=== PATIENT | female | born 1955 | race Caucasian/White ===

== ENCOUNTER → 2016-10-02 | Outpatient (CLI) | payer OTHER ==
--- NOTE | 2016-10-02 14:30 | RAD ---
DATE: 10/02/2016 EXAM: DIGITAL DIAGNOSTIC LT, BREAST LEFT HISTORY: Suspicious screening study COMPARISON: 09/18/2016, 09/24/2014, 09/21/2013 This study was interpreted with the benefit of Computerized Aided Detection (CAD). FINDINGS: Additional views of the left breast were obtained including spot compression views of the area of suspicion described laterally on the screening study. The spot compression views do not demonstrate a discrete mass. There are heterogeneous fibroglandular shadows similar to those seen on multiple previous exams. The appearance on the screening study was most likely due to a summation of fibroglandular shadows. Left breast ultrasound, 10/02/2015: A targeted ultrasound exam of the lateral aspect of the left breast was performed. Heterogeneous fibroglandular shadows are evident. No cystic or solid breast mass is seen. IMPRESSION: No significant abnormality is detected. Routine mammographic surveillance is suggested. BI-RADS CATEGORY: 2 BENIGN FINDING(S) RECOMMENDED FOLLOW-UP: 12M 12 MONTH FOLLOW-UP PQRS compliance statement: Patient information was entered into a reminder system with a target due date for the next mammogram. Mammography is a sensitive method for finding small breast cancers, but it does not detect them all and is not a substitute for careful clinical examination. A negative mammogram does not negate a clinically suspicious finding and should not result in delay in biopsying a clinically suspicious abnormality. "Our facility is accredited by the [employer] Mammography [employer]."
== END | disposition home or self-care (01) ==
LOC: MAMMO 14:09
PROVIDERS: ATTEND Family Medicine
DX: R92.8 Other abnormal and inconclusive findings on diagnostic imaging of breast (principal)
CPT/HCPCS: 76641; G0206

== ENCOUNTER → 2017-10-19 | Outpatient (CLI) | payer OTHER | END | disposition home or self-care (01) | LOC: MAMMO 17:43 | DX: Z12.31 Encounter for screening mammogram for malignant neoplasm of breast (principal) | CPT/HCPCS: 77067 ==

== ENCOUNTER → 2018-10-21 | Outpatient (CLI) | payer OTHER ==
--- NOTE | 2018-10-21 13:04 | RAD ---
DATE: 10/21/2018 EXAM: MAMMO AGATHA SCREENING BILATERAL HISTORY: Routine screen COMPARISON: 10/19/2017 This study was interpreted with the benefit of Computerized Aided Detection (CAD). Breast Density: HETERO The breast parenchyma is heterogenously dense, which could reduce sensitivity of mammography. Breast parenchyma level C. FINDINGS: 2-D and 3-D tomosynthesis imaging was performed in CC and MLO projections. No new or enlarging breast densities are seen. There are stable microcalcifications laterally in the right breast. No suspicious microcalcifications have developed. IMPRESSION: Stable mammograms without evidence of malignancy. BI-RADS CATEGORY: 2 BENIGN FINDING(S) RECOMMENDED FOLLOW-UP: 12M 12 MONTH FOLLOW-UP PQRS compliance statement: Patient information was entered into a reminder system with a target due date for the next mammogram. Mammography is a sensitive method for finding small breast cancers, but it does not detect them all and is not a substitute for careful clinical examination. A negative mammogram does not negate a clinically suspicious finding and should not result in delay in biopsying a clinically suspicious abnormality. "Our facility is accredited by the [employer] Mammography [employer]."
== END | disposition home or self-care (01) ==
LOC: MAMMO 10:32
PROVIDERS: ATTEND Family Medicine
DX: Z12.31 Encounter for screening mammogram for malignant neoplasm of breast (principal)
CPT/HCPCS: 77063; 77067

== ENCOUNTER → 2019-10-05 | Outpatient (CLI) | payer OTHER ==
[2019-10-05 10:47] LABS: ALBUMIN 3.8 g/dL (3.4-5.0); ALBUMIN/GLOBULIN RATIO 0.7 (1.0-1.7); CALCIUM 9.5 mg/dL (8.5-10.1); CREATININE 1.1 mg/dL (0.6-1.0); GFR 60.7; POTASSIUM 3.8 mmol/L (3.5-5.1); TOTAL BILIRUBIN 0.3 mg/dL (0.2-1.0); TOTAL PROTEIN 9.3 g/dL (6.4-8.2)
[2019-10-05 10:49] LABS: BASO # 0.1 x10^3/uL (0.0-0.2); BASO % 1 % (0-3); EOS # 0.1 x10^3/uL (0.0-0.7); EOS % 2 % (0-3); HEMATOCRIT 39.1 % (36.0-47.0); HEMOGLOBIN 13.1 g/dL (12.0-15.5); LYMPH # 2.2 x10^3/uL (1.0-4.8); LYMPH % 34 % (24-48); MEAN CORPUSCULAR HEMOGLOBIN 30 pg (25-35); MEAN CORPUSCULAR HGB CONC 34 g/dL (31-37); MEAN CORPUSCULAR VOLUME 89 fL (79-100); MONO # 0.9 x10^3/uL (0.0-1.1); MONO % 14 % (0-9); NEUT # 3.2 x10^3/uL (1.8-7.7); NEUT % 50 % (31-73); PLATELET COUNT 247 x10^3/uL (140-400); RED BLOOD COUNT 4.41 x10^6/uL (3.50-5.40); RED CELL DISTRIBUTION WIDTH 13.7 % (11.5-14.5); WHITE BLOOD COUNT 6.5 x10^3/uL (4.0-11.0)
== END | disposition home or self-care (01) ==
LOC: LAB 10:07
PROVIDERS: ATTEND Internal Medicine Gastroenterology
DX: K50.10 Crohn's disease of large intestine without complications (principal)
CPT/HCPCS: 80053; 85025; 86481

== ENCOUNTER → 2019-11-07 | Outpatient (CLI) | payer OTHER ==
[2019-11-09 13:11] LABS: ALBUM 3.5 g/dL (2.9-4.4); ALPHA 1 0.2 g/dL (0.0-0.4); ALPHA 2 0.7 g/dL (0.4-1.0); BETA 1.7 g/dL (0.7-1.3); GAMMA 2.2 g/dL (0.4-1.8); PROTEIN TOTAL 8.3 g/dL (6.0-8.5); SPEP AG RATIO 0.7 (0.7-1.7)
== END | disposition home or self-care (01) ==
LOC: LAB 10:00
PROVIDERS: ATTEND Physician Assistant
DX: R77.9 Abnormality of plasma protein, unspecified (principal)
CPT/HCPCS: 36415; 84165

== ENCOUNTER → 2020-02-16 | Outpatient (CLI) | payer OTHER ==
[~2020-02-16] MED LIST: ACETAMINOPHEN 325 MG TABLET. PO ONE; CETIRIZINE HCL 10 MG TABLET. PO ONE; INFLIXIMAB IV ONE; NORMAL SALINE IV ONE
[2020-02-16 14:53] VITALS: BP 177/95
[2020-02-16 15:49] VITALS: BP 198/96
== END | disposition home or self-care (01) ==
LOC: OPS 13:40
PROVIDERS: ATTEND Internal Medicine Gastroenterology
DX: K50.90 Crohn's disease, unspecified, without complications (principal)
CPT/HCPCS: 96365; 96366; J1745; J7050; J7030

== ENCOUNTER → 2020-04-12 | Outpatient (CLI) | payer OTHER ==
[~2020-04-12] VITALS: Ht 157.5 cm; Wt 65.3 kg
[2020-04-12 13:40] VITALS: BP 120/71
== END ==
LOC: OPS 13:15
PROVIDERS: ATTEND Internal Medicine Gastroenterology
DX: K50.90 Crohn's disease, unspecified, without complications (principal)
CPT/HCPCS: 96365; 96366; J1745; J7050; J7030

== ENCOUNTER → 2020-04-25 | Outpatient (CLI) | payer OTHER ==
[2020-04-12 13:40] VITALS: BP 120/71
[2020-04-25 12:13] LABS: HEMATOCRIT 38.5 % (36.0-47.0); HEMOGLOBIN 12.6 g/dL (12.0-15.5); RED BLOOD COUNT 4.41 x10^6/uL (3.50-5.40); RED CELL DISTRIBUTION WIDTH 13.3 % (11.5-14.5); WHITE BLOOD COUNT 5.9 x10^3/uL (4.0-11.0)
[2020-04-25 12:33] LABS: ALBUMIN 3.6 g/dL (3.4-5.0); ALBUMIN/GLOBULIN RATIO 0.7 (1.0-1.7); CREATININE 1.1 mg/dL (0.6-1.0); GFR 60.5; POTASSIUM 3.3 mmol/L (3.5-5.1); TOTAL BILIRUBIN 0.5 mg/dL (0.2-1.0); TOTAL PROTEIN 8.7 g/dL (6.4-8.2)
[2020-04-25 12:34] LABS: CHOLESTEROL/HDL RATIO 4.1
[2020-04-25 12:48] LABS: FREE T4 1.24 ng/dL (0.76-1.46); THYROID STIM HORMONE (TSH) 1.091 uIU/mL (0.358-3.74)
== END | disposition home or self-care (01) ==
LOC: LAB 11:37
PROVIDERS: ATTEND Family Medicine
DX: E03.9 Hypothyroidism, unspecified (principal); I10 Essential (primary) hypertension
CPT/HCPCS: 36415; 80053; 80061; 84439; 84443; 85027

== ENCOUNTER → 2020-06-07 | Outpatient (CLI) | payer OTHER ==
[~2020-06-07] VITALS: Ht 154.9 cm; Wt 61.2 kg
[~2020-06-07] MED LIST changes: +CETIRIZINE HCL 10 MG TABLET. ONE; -CETIRIZINE HCL 10 MG TABLET. PO ONE; +CETIRIZINE HCL 10 MG TABLET. PO SCH; +CHOL-5 PO; +LEVO25TA55 PO; +LOSA1TAB25 PO
[2020-06-07 13:35] VITALS: BP 126/76
[2020-06-07 14:15] VITALS: BP 140/83
== END | disposition home or self-care (01) ==
LOC: OPS 13:14
PROVIDERS: ATTEND Internal Medicine Gastroenterology
DX: K50.90 Crohn's disease, unspecified, without complications (principal); I10 Essential (primary) hypertension; E03.9 Hypothyroidism, unspecified
CPT/HCPCS: 96365; 96366; J1745; J7050; J7030

== ENCOUNTER → 2021-06-03 | Outpatient (CLI) | payer MEDICARE, OTHER ==
[2020-08-02 16:05] VITALS: BP 141/81
[~2021-06-03] MED LIST changes: -ACETAMINOPHEN 325 MG TABLET. PO ONE; -CETIRIZINE HCL 10 MG TABLET. ONE; -CETIRIZINE HCL 10 MG TABLET. PO SCH; -INFLIXIMAB IV ONE; -NORMAL SALINE IV ONE; +POTA10TA12 PO
--- NOTE | 2021-06-03 10:41 | RAD ---
DATE: 06/03/2021 EXAM: MAMMO AGATHA SCREENING BILATERAL HISTORY: Screening COMPARISON: Multiple priors exams dating back to 2008 This study was interpreted with the benefit of Computerized Aided Detection (CAD). Breast Density: HETERO The breast parenchyma is heterogenously dense, which could reduce sensitivity of mammography. Breast parenchyma level C. FINDINGS: No mass, suspicious calcification, or architectural distortion in either breast. Unchanged calcifications in the upper outer right breast. IMPRESSION: No evidence of malignancy. BI-RADS CATEGORY: 2 BENIGN FINDING(S) RECOMMENDED FOLLOW-UP: 12M 12 MONTH FOLLOW-UP PQRS compliance statement: Patient information was entered into a reminder system with a target due date for the next mammogram. Mammography is a sensitive method for finding small breast cancers, but it does not detect them all and is not a substitute for careful clinical examination. A negative mammogram does not negate a clinically suspicious finding and should not result in delay in biopsying a clinically suspicious abnormality. "Our facility is accredited by the [employer] Mammography [employer]."
== END ==
LOC: MAMMO 08:54
PROVIDERS: ATTEND Family Medicine
DX: Z12.31 Encounter for screening mammogram for malignant neoplasm of breast (principal)
CPT/HCPCS: 77063; 77067

== ENCOUNTER → 2021-06-05 | Outpatient (CLI) | payer MEDICARE, OTHER ==
[2020-08-02 16:05] VITALS: BP 141/81
[~2021-06-05] MED LIST changes: +CONTRAST GIVEN. MC PRN; +IOHEXOL 300 MG/ML 100ML VIAL. IV ONE
--- NOTE | 2021-06-05 09:44 | RAD ---
CT of the pelvis with contrast 06/05/2021 INDICATION: Suprapubic mass COMPARISON STUDY: Pelvic ultrasound January 22, 2015 TECHNIQUE: Multidetector CT imaging of the pelvis performed following the administration of contrast. FINDINGS: Multiple calcified uterine masses are seen. There is a dominant peripherally calcified mass within the uterus measuring up to 10.3 cm in diameter. Centrally, the mass appears to be soft tissue in density. There are also areas of soft tissue density along the superior left and inferior right a spect of the uterus. Whether these represent the adnexa is uncertain given distortion from large mass es. On ultrasound exam from December 2014 mass measures approximately 8.6 cm in diameter. No free fluid or free air is seen in the abdomen or pelvis. The appendix is unremarkable. No evidence of bowel obst ruction is identified within the partially visualized bowel. No acute osseous changes are identified. The bladder is decompressed. Mass effect upon the bladder from the uterus noted. IMPRESSION:: Multiple primarily peripherally calcified uterine masses including a 10.3 cm mass. Centr al soft tissue component noted. Similar findings are noted on ultrasound from December 2014, though the mass measured 8.5 cm at that time suggesting possible mild increase in size. Foci of soft tissue thic kening along the superior left and inferior right uterus are seen. If these represent the adnexa/ovar ies, they prominent for a postmenopausal patient. While the overall appearance and relative stabilit y suggests a fibroid uterus with degenerative calcification, given possible change in size, and soft tissue components, recommend contrast enhanced pelvic MRI for further characterization. CT DOSING PQRS STATEMENT: One or more of the following individualized dose reduction techniques were utilized for this examinat ion: 1. Automated exposure control 2. Adjustment of the mA and/or kV according to patient size 3. Use of iterative reconstruction technique Electronically signed by: Dustin Meyers MD (06/05/2021 9:41 AM) [id number]
== END ==
LOC: CT 08:09
PROVIDERS: ATTEND Family Medicine
DX: N85.8 Other specified noninflammatory disorders of uterus (principal)
CPT/HCPCS: 72193; Q9967